=== PATIENT | male | born 1980 | race Caucasian/White ===

== ENCOUNTER 2016-12-19 05:40 | Emergency (ER) | payer SELFPAY ==
[~2016-12-19] VITALS: Ht 175.3 cm; Wt 81.6 kg
== END 2016-12-19 07:40 | disposition short-term general hospital (02) ==
LOC: ER 05:40 → RAD 05:41 → ER 05:41
DX: J40 Bronchitis, not specified as acute or chronic (principal); R04.2 Hemoptysis; F17.210 Nicotine dependence, cigarettes, uncomplicated
CPT/HCPCS: J0696